=== PATIENT | male | born 1980 | race African-American/Black ===

== ENCOUNTER 2017-07-08 06:33 | Emergency (ER) | payer OTHER ==
[~2017-07-08] VITALS: Ht 177.8 cm; Wt 88.0 kg
[2017-07-08] MEDS ORDERED: LIDOCAINE HCL 1% LOCAL INJ 20 ML VIAL ONE (07:42)
== END 2017-07-08 08:30 | disposition home or self-care (01) ==
LOC: ER 06:33
DX: L72.3 Sebaceous cyst (principal); Z72.0 Tobacco use
CPT/HCPCS: 10060 ×2; 99283; J2001